=== PATIENT | female | born 1975 | race Two or more races ===

== ENCOUNTER 2016-08-23 13:11 | Emergency (ER) | payer BC ==
[2016-08-23 13:17] VITALS: BP 159/76; PULSE 97; TEMP 97.9; BMI 30.9
--- NOTE | 2016-08-23 14:21 | PDOC ---
History of Present Illness - General Chief Complaint: Bite Stated Complaint: DOG BITE, LEG Time Seen by Provider: 08/23/16 13:42 History Source: Patient Exam Limitations: No Limitations - History of Present Illness Initial Comments: 08/23/16 14:18 CC bitten by own dog today while playing with him Occurred: reports: just prior to arrival Severity: reports: mild Pain Location: reports: lower extremity Past History - Past Medical History Allergies/Adverse Reactions: Allergies Allergy/AdvReac Type Severity Reaction Status Date / Time No Known Allergies Allergy Verified 08/23/16 13:14 - Surgical History Cholecystectomy: Yes - Psycho/Social/Smoking Cessation Hx Anxiety: No Suicidal Ideation: No Smoking History: Never smoked Have you smoked in the past 12 months: No Information on smoking cessation initiated: No Hx Alcohol Use: No Drug/Substance Use Hx: No Substance Use Type: None Review of Systems - Review of Systems Constitutional: No: Chills, Fever, Malaise HEENTM: No: Symptoms Reported Respiratory: Yes: Cough ABD/GI: No: Symptoms Reported : No: Symptoms Reported Musculoskeletal: No: Symptoms Reported Integumentary: Yes: Other (large dog bite left prox calf) *Physical Exam - Vital Signs Last Vital Signs Temp Pulse Resp BP Pulse Ox 97.9 F 97 H 18 159/76 100 08/23/16 13:14 08/23/16 13:14 08/23/16 13:14 08/23/16 13:14 08/23/16 13:14 - Physical Exam General Appearance: Yes: Appropriately Dressed. No: Apparent Distress HEENT: positive: Pharynx Normal Neck: positive: Supple. negative: Rigid Respiratory/Chest: positive: Lungs Clear, Normal Breath Sounds Extremity: positive: Other (10 cm x 1 cm wide ope laceration anterior/ medial calf proximal aspect) Procedures - Laceration/Wound Repair Left Anterior Medial Proximal Leg Wound Length: 7.6 to 12.5 cm Wound Explored: no foreign body present Wound's Depth, Shape: linear, irregular Irrigated w/ Saline: Yes Betadine Prep: Yes Anesthesia: 1% Lidocaine Amount of Anesthetic (ccs): 10 Suture Size/Type: 4:0, nylon Number of Sutures: 15 Layer Closure: No Sterile Dressing Applied: Yes ED Treatment Course - ADDITIONAL ORDERS Additional order review: Laboratory Results 08/23/16 13:52 Urine HCG, Qual Negative - RADIOLOGY Radiology Studies Ordered: Category Date Time Status LEG TIB/FIB-LEFT [RAD] Stat Radiology 08/23/16 13:52 Ordered Medical Decision Making - Medical Decision Making 08/23/16 15:44 laceration repair done; no fracture/ FB noted on xray; placed pressure drsg now ; will suggest crutch use x 3 days; wound check in 2 in ED; Tetanus and augmentin started in ED *DC/Admit/Observation/Transfer Diagnosis at time of Disposition: Laceration of lower extremity Qualifiers: Encounter type: initial encounter Laterality: left Qualified Code(s): S81.812A - Laceration without foreign body, left lower leg, initial encounter Dog bite of lower leg Qualifiers: Encounter type: initial encounter Laterality: left Qualified Code(s): S81.852A - Open bite, left lower leg, initial encounter; W54.0XXA - Bitten by dog, initial encounter - Discharge Dispostion Disposition: HOME Condition at time of disposition: Stable Admit: No - Patient Instructions Additional Instructions: tetanus good x 10 years; wound check in ED in 2-3 days; elevate leg at all times; use crutches until wound check; sutures out 14 days - Post Discharge Activity Work/School Note: Back to Work
[2016-08-23] MEDS ORDERED: AMOX TR/POT CLAV 875MG/125MG TABLETS (FP) PO ONE (16:01)
[2016-08-23] MEDS ORDERED: AMOX TR/POT CLAV 875MG/125MG TABLETS (FP) ONE (16:01)
[2016-08-23] MEDS ORDERED: DIPHTH,PERTUSS(ACELL),TET 0.5 ML DISP.SYRIN IM ONE (16:01)
== END 2016-08-23 16:10 | disposition home or self-care (01) ==
LOC: JERFT 13:11
PROC: 0JQP0ZZ Repair Left Lower Leg Subcutaneous Tissue and Fascia, Open Approach (ICD-10-PCS; principal; 2016-08-23)
PROC: 3E0234Z Introduction of Serum, Toxoid and Vaccine into Muscle, Percutaneous Approach (ICD-10-PCS; 2016-08-23)
DX: S81.852A Open bite, left lower leg, initial encounter (principal); W54.0XXA Bitten by dog, initial encounter; Y93.K9 Activity, other involving animal care; Y92.038 Other place in apartment as the place of occurrence of the external cause; Y99.8 Other external cause status
CPT/HCPCS: 73590-TC-LT; 84703; 90715; 99281-25

== ENCOUNTER 2016-08-26 19:01 | Emergency (ER) | payer BC ==
[2016-08-26 19:24] VITALS: BP 140/74; PULSE 88; TEMP 98.3; BMI 30.9
--- NOTE | 2016-08-26 20:24 | PDOC ---
History of Present Illness - General Chief Complaint: Revisit,Wound Recheck Stated Complaint: FOLLOW UP, LEG PAIN Time Seen by Provider: 08/26/16 19:37 History Source: Patient Exam Limitations: No Limitations - History of Present Illness Initial Comments: 08/26/16 20:19 41-year-old female sent here for wound check secondary to her dog bite that she sustained 3 days prior which required sutures, tetanus and is currently on antibiotics. Patient states no worsening pain drainage or swelling. Patient also denies fever. Timing/Duration: resolved prior to arrival Associated Symptoms: reports: denies symptoms Past History - Past Medical History Allergies/Adverse Reactions: Allergies Allergy/AdvReac Type Severity Reaction Status Date / Time No Known Allergies Allergy Verified 08/23/16 13:14 Home Medications: Ambulatory Orders Amoxicillin/Potassium Clav [Augmentin 875-125 Tablet] 1 each PO BID #14 tablet 08/23/16 - Surgical History Cholecystectomy: Yes - Psycho/Social/Smoking Cessation Hx Anxiety: No Suicidal Ideation: No Smoking History: Never smoked Have you smoked in the past 12 months: No Information on smoking cessation initiated: No Hx Alcohol Use: No Drug/Substance Use Hx: No Substance Use Type: None Patient Lives Alone: No Lives with/in: spouse/SO Review of Systems - Review of Systems Able to Perform ROS?: Yes Constitutional: No: Symptoms Reported ABD/GI: No: Nausea Musculoskeletal: No: Symptoms Reported Integumentary: No: Symptoms Reported Neurological: No: Symptoms reported *Physical Exam - Vital Signs Last Vital Signs Temp Pulse Resp BP Pulse Ox 98.3 F 88 18 140/74 100 08/26/16 19:22 08/26/16 19:22 08/26/16 19:22 08/26/16 19:22 08/26/16 19:22 - Physical Exam General Appearance: Yes: Nourished, Appropriately Dressed. No: Apparent Distress Vascular Pulses: Doralis-Pedis (L): 2+ Extremity: positive: Other (Noted mildly edematous and ecchymotic repaired laceration to upper in her left calf no palpable fluctuance no erythema and no increased warmth dry blood noted to dressing. ) Integumentary: positive: Swelling, Ecchymosis Neurologic: positive: Motor Strength 5/5 (ambulatory with crutches) Medical Decision Making - Medical Decision Making 03/05/17 20:21 Patient here for wound check secondary to laceration repair after sustaining a dog bite 3 days prior. Patient states has had no symptoms, continued to take antibiotics but does not often apply ice or elevate extremity. area redressed instructions given on laceration repair supportive care *DC/Admit/Observation/Transfer Diagnosis at time of Disposition: Dog bite of lower leg Qualifiers: Encounter type: subsequent encounter Laterality: left Qualified Code(s): S81.852D - Open bite, left lower leg, subsequent encounter; W54.0XXD - Bitten by dog, subsequent encounter - Discharge Dispostion Disposition: HOME Condition at time of disposition: Good - Patient Instructions Printed Discharge Instructions: How to Care for a Domestic Animal Bite, DI for Laceration Repair -- Complex Suture Additional Instructions: Please keep area clean and dry . please elevated higher than your heart when not ambulatory. Please apply ice to the affected area for the next 2 days. Continue antibiotics. Return here for suture removal as previously discussed
== END 2016-08-26 20:24 | disposition home or self-care (01) ==
LOC: JERFT 19:01
DX: Z09 Encounter for follow-up examination after completed treatment for conditions other than malignant neoplasm (principal); S81.852A Open bite, left lower leg, initial encounter; W54.0XXD Bitten by dog, subsequent encounter
CPT/HCPCS: 99281-25

== ENCOUNTER 2016-09-06 11:10 | Emergency (ER) | payer BC ==
[2016-09-06 11:20] VITALS: BP 133/64; PULSE 81; TEMP 98; BMI 30.9
--- NOTE | 2016-09-06 12:23 | PDOC ---
Suture Removal/Wound Check HPI - History of Present Illness Chief Complaint: Suture/Staple Removal(Here) Stated Complaint: SUTURE REMOVAL Time Seen by Provider: 09/06/16 11:32 History Source: Yes: Patient Exam Limitations: Yes: No Limitations Treated at: [facility] Date of Last ED visit: 08/26/16 - Previous ED Treatment Type of procedure performed on last visit: Yes: Other (wound check) Tetanus Immunization: Yes: Up to Date Antibiotics Prescribed: Yes (augmentin) - Onset of Previous Treatment Date of Occurence: 08/23/16 Comment:: 09/06/16 14:22 Was seen here originally on 08/23/2016 for dog bite to her right anterior medial calf and received 15 sutures and the patient was then seen 08/26/2016 for wound check. Patient reports that she has not been cleansing her wound just applying bacitracin twice a day and has been covering it constantly with a dressing not letting it air out. Denies any fever. Or any tenderness of wound or discharge from wound Past History - Past Medical History Allergies/Adverse Reactions: Allergies No Known Allergies Allergy (Verified 09/06/16 11:17) Home Medications: Ambulatory Orders Amoxicillin/Potassium Clav [Augmentin 875-125 Tablet] 1 each PO BID #14 tablet 08/23/16 General: Yes: no pertinent history - Social History Smoking Status: Never smoked Suture Removal/Wound Check PE - Physical Exam Laceration/Wound Check Symptoms: reports: Other Comment (see under comments) Comments: 09/06/16 12:24 wound on left calf with 15 sutures that were placed on 08/23/2016 due to a dog bite by her own dog that was up-to-date with immunizations. Patient reports that she has not been cleaning the wound with any soap and water has just been applying bacitracin twice a day and been keeping the wound covered at all times. Wound appears moist cleansed it with Betadine and normal saline 0.9% removed 1 interrupted suture that was slightly medial to left of wound edge, wound edge was not well approximated slight gap noted and removed one other interrupted suture at the medial and of wound wound edge approximated. Applied Steri-Strips to areas where sutures were removed stopped removing sutures as wound does not appear that it is well-healed due to being moist and covered at all times. No erythema noted along wound edges no signs of infection. We'll give the patient will instructions and have her come back in 3 days first suture removal. Or 13 sutures remaining Telfa applied including 09/06/16 12:27 09/06/16 12:28 Current Severity Level: Mild Pain Localization: None Location of Laceration/Wound: left: Leg (anterior calf ) *Review of Systems - Review of Systems Constitutional: No: Symptoms Reported HEENTM: No: Symptoms Reported Respiratory: No: Symptoms reported Cardiac (ROS): No: Symptoms Reported ABD/GI: No: Symptoms Reported : No: Symptoms Reported Integumentary: Yes: Other (With 15 sutures left anterior/medial calf, ) Neurological: No: Symptoms reported Procedures - Consent Consent obtained: From Patient - Additional Procedures Progress: 09/06/16 12:28 wound on left calf with 15 sutures that were placed on 08/23/2016 due to a dog bite by her own dog that was up-to-date with immunizations. Patient reports that she has not been cleaning the wound with any soap and water has just been applying bacitracin twice a day and been keeping the wound covered at all times. Wound appears moist cleansed it with Betadine and normal saline 0.9% removed 1 interrupted suture that was slightly medial to left of wound edge, wound edge was not well approximated slight gap noted and removed one other interrupted suture at the medial and of wound wound edge approximated. Applied Steri-Strips to areas where sutures were removed stopped removing sutures as wound does not appear that it is well-healed due to being moist and covered at all times. No erythema noted along wound edges no signs of infection. We'll give the patient will instructions and have her come back in 3 days first suture removal. 13 sutures remaining Telfa applied including vinod Medical Decision Making - Medical Decision Making 09/06/16 12:29 Patient here for suture removal of left anterior medial calf left leg attempted to remove 2 sutures wound edges on at one suture removal was not well approximated will have patient come back in 3 days for further suture removal with proper instructions on wound care *DC/Admit/Observation/Transfer Diagnosis at time of Disposition: Encounter for wound re-check - Discharge Dispostion Disposition: HOME Condition at time of disposition: Stable - Referrals Referrals: Melo Langford MD [Primary Care Provider] - - Patient Instructions Additional Instructions: Wound on left leg with antibacterial soap and water pat dry twice daily and apply a Steri-Strip at 2 areas where sutures were removed only apply bacitracin to wound in the morning wound air out when at home and especially at night when sleeping,. Cover wounds with dressing when out of house only Return here in 3 days and check and possible further suture removal She voiced understanding of discharge instructions and all questions were answered
== END 2016-09-06 12:36 | disposition home or self-care (01) ==
LOC: JERFT 11:10
DX: Z09 Encounter for follow-up examination after completed treatment for conditions other than malignant neoplasm (principal)
CPT/HCPCS: 99281-25

== ENCOUNTER 2016-09-10 21:05 | Emergency (ER) | payer BC ==
[2016-09-10 21:23] VITALS: BP 138/71; PULSE 89; TEMP 98.5; BMI 30.9
--- NOTE | 2016-09-10 21:54 | PDOC ---
Suture Removal/Wound Check HPI - History of Present Illness Chief Complaint: Suture/Staple Removal(Here) Stated Complaint: STITCHES REMOVAL Time Seen by Provider: 09/10/16 21:20 History Source: Yes: Patient Exam Limitations: Yes: No Limitations Date of Last ED visit: 08/26/16 Past History - Past Medical History Allergies/Adverse Reactions: Allergies No Known Allergies Allergy (Verified 09/10/16 21:20) Home Medications: Ambulatory Orders Amoxicillin/Potassium Clav [Augmentin 875-125 Tablet] 1 each PO BID #14 tablet 08/23/16 - Social History Smoking Status: Never smoked Medical Decision Making - Medical Decision Making A/P: 41 y/o female with 14 sutures placed into left lower leg on 08/23 with 2 sutures removed on 09/06 here for the rest of the sutures to be removed. 12 sutures removed. Wound healing well. Still some space in between margins so steri strips applied. Pt instructed to keep area clean and dry. *DC/Admit/Observation/Transfer Diagnosis at time of Disposition: Visit for suture removal - Discharge Dispostion Disposition: HOME Condition at time of disposition: Improved - Referrals Referrals: Melo Langford MD [Primary Care Provider] - - Patient Instructions Printed Discharge Instructions: DI for Suture Removal Additional Instructions: Discharge Instructions: -Steri strips will fall off on their own -Keep area clean and dry
== END 2016-09-10 22:00 | disposition home or self-care (01) ==
LOC: JERFT 21:05
DX: Z48.02 Encounter for removal of sutures (principal)
CPT/HCPCS: 99281-25

== ENCOUNTER 2022-11-08 10:24 | Inpatient (IN) | payer BC ==
[2022-11-08 10:39] VITALS: BMI 31.8
[2022-11-08] MEDS ORDERED: ESTROGENS,CONJUGATED 25 MG VIAL IVPB ONE ×2 (11:21→12:39)
[2022-11-08 11:24] LABS: BASO % 0.5 % (0-2.0); HEMATOCRIT 18.8 % (32.4-45.2); LYMPH % 43.3 % (8-40); MCH 29.3 pg (25.7-33.7); MCHC 34.7 g/dl (32.0-36.0); MEAN CELL VOLUME 84.3 fl (80-96); MEAN PLT VOLUME 8.1 fl (7.5-11.1); MONO % 4.7 % (3.8-10.2); NEUT % 50.5 % (42.8-82.8); PLATELET COUNT 447 10^3/uL (134-434); RBC 2.23 M/mm3 (3.60-5.2); RDW 14.4 % (11.6-15.6); WHITE BLOOD COUNT 5.9 K/mm3 (4.0-10.0)
[2022-11-08 11:32] LABS: INR 0.94 (0.83-1.09); PROTHROMBIN TIME (PATIENT) 10.9 SEC (9.7-13.0)
[2022-11-08 11:35] LABS: ACTIVATED PTT 28.5 SECONDS (25.2-36.5); POTASSIUM 4.5 mmol/L (3.5-5.1)
[2022-11-08 11:38] LABS: ALBUMIN 3.3 g/dl (3.4-5.0); BLOOD UREA NITROGEN 9.1 mg/dL (7-18); CALCIUM 8.1 mg/dL (8.5-10.1); HEMOGLOBIN 6.5 GM/dL (10.7-15.3)
[2022-11-08 11:41] LABS: CREATININE 0.5 mg/dL (0.55-1.3)
[2022-11-08 11:43] LABS: BILIRUBIN,TOTAL 0.3 mg/dL (0.2-1); TOT PROT 6.4 g/dl (6.4-8.2)
[2022-11-08] MEDS ORDERED: ACETAMINOPHEN 325 MG TABLET (FP) ONE (14:48)
[2022-11-08] MEDS ORDERED: ACETAMINOPHEN 500 MG TABLET (FP) PO ONE (14:59)
[2022-11-08] MEDS ORDERED: CEFAZOLIN SODIUM 2 GM in DEXTROSE 5%-WATER 100 ML IVPB ONE (18:04)
[2022-11-08 18:08] LABS: EPI CELLS 16 /uL (0-25.1); HYALINE CASTS 1 /uL (0-3.1); URINE APPEARANCE TURBID; URINE BILIRUBIN 1+ (NEGATIVE); URINE COLOR RED; URINE GLUCOSE (UA) NEGATIVE (NEGATIVE); URINE KETONE NEGATIVE (NEGATIVE); URINE LEUK ESTERASE 1+ (NEGATIVE); URINE NITRITE POSITIVE (NEGATIVE); URINE PROTEIN 2+ (NEGATIVE); URINE RBC 52847 /uL (0-23.9); URINE UROBILINOGEN 0.2 mg/dL (0.2-1.0); URINE WBC 63 /uL (0-25.8)
[2022-11-08] MEDS ORDERED: MIDAZOLAM HCL 2 MG/2 ML SINGLE DOSE VIAL ONE (18:08)
[2022-11-08] MEDS ORDERED: PROPOFOL 20 ML ONE (18:08)
[2022-11-08] MEDS ORDERED: ceFAZolin SODIUM 1 GM VIAL IVPB ONE (18:38)
[2022-11-08 18:40] LABS: URINE BACTERIA 7 /uL (0-1359)
[2022-11-08] MEDS ORDERED: ONDANSETRON 4 MG/2 ML VIAL IVPUSH PRN (19:24)
[2022-11-08] MEDS ORDERED: oxyCODONE HCL 5 MG TABLET PO PRN (19:24)
[2022-11-08] MEDS ORDERED: LACTATED RINGERS SOLUTION 1,000 ML IV SCH (19:30)
[2022-11-08 20:56] VITALS: BP 106/70; PULSE 72; RESP 18; TEMP 98.6
[2022-11-08 21:36] LABS: BASO % 0.2 % (0-2.0); HEMATOCRIT 29.3 % (32.4-45.2); HEMOGLOBIN 9.8 GM/dL (10.7-15.3); LYMPH % 10.4 % (8-40); MCH 28.5 pg (25.7-33.7); MCHC 33.6 g/dl (32.0-36.0); MEAN CELL VOLUME 84.6 fl (80-96); MEAN PLT VOLUME 7.5 fl (7.5-11.1); MONO % 1.4 % (3.8-10.2); PLATELET COUNT 360 10^3/uL (134-434); RBC 3.46 M/mm3 (3.60-5.2); RDW 14.4 % (11.6-15.6); WHITE BLOOD COUNT 11.1 K/mm3 (4.0-10.0)
== END 2022-11-08 22:54 | disposition home or self-care (01) | DRG 744 ==
LOC: JER 10:24 → JERBED 14:58 → J3W 16:49
PROVIDERS: ADMIT Obstetrics & Gynecology; ATTEND Obstetrics & Gynecology
PROC: 0UDB8ZZ Extraction of Endometrium, Via Natural or Artificial Opening Endoscopic (ICD-10-PCS; 2022-11-08)
PROC: 30233N1 Transfusion of Nonautologous Red Blood Cells into Peripheral Vein, Percutaneous Approach (ICD-10-PCS; 2022-11-08)
PROC: 0UJD8ZZ Inspection of Uterus and Cervix, Via Natural or Artificial Opening Endoscopic (ICD-10-PCS; principal; 2022-11-08 18:00)
DX: N92.4 Excessive bleeding in the premenopausal period (principal); D62 Acute posthemorrhagic anemia
CPT/HCPCS: 0241U-QW; 36415; 36430; 80053; 81003; 84703; 85025; 85610; 85730; 86850; 86900; 86901; 86922; 87077; 87086; 88305-TC; 93005; 93010; 94760; 99285-25; J1410; P9058